=== PATIENT | male | born 1965 | race Caucasian/White ===

== ENCOUNTER → 2016-11-17 | Outpatient (CLI) | payer OTHER ==
--- NOTE | 2016-11-17 18:55 | STRESS TEST ---
DATE OF SERVICE: 11/17/2016 EXERCISE TREADMILL TEST ORDERING PHYSICIAN: Dr. Jenny Alvarez. DIAGNOSES: Chest pain, shortness of breath. PROCEDURE DETAILS: The patient was brought to the stress lab after informed consent was taken. Exercise stress test was performed according to the standard [place] protocol. Baseline EKG showed sinus rhythm at 57 BPM. Blood pressure was 123/77 mmHg. The patient exercised for 12 minutes and 46 seconds and achieved 12.8 metabolic equivalents. Maximum heart rate was 180 BPM. Maximum heart rate achieved was 108% of maximum predicted heart rate response. Maximum blood pressure was 181/47 mmHg. The patient did not complain of any chest symptoms. There were no arrhythmias or ST changes noted during peak exercise. CONCLUSION: 1. Exercise stress test was negative for ischemia. 2. Excellent functional capacity. 3. Normotensive response to exercise. Job ID: [id number] DocumentID: [id number] Dictated Date: 11/17/2016 12:44:08 Nailhead Setter Date: 11/17/2016 15:07:35 Dictated By: EMILE GUARDADO MD
== END ==
LOC: CARD 10:26
PROVIDERS: ATTEND Pediatrics
DX: R07.9 Chest pain, unspecified (principal)
CPT/HCPCS: 93017